=== PATIENT | male | born 1990 | race Caucasian/White ===

== ENCOUNTER 2023-07-06 17:05 | Emergency (ER) | payer OTHER, SELFPAY ==
[2023-07-06 17:11] VITALS: BP 136/89; PULSE 83; RESP 16; TEMP 36.5; O2SAT 99; BMI 31.0
[2023-07-06] MEDS: PROPARACAINE 0.5% OPHTH SOL 1 DROPS EYE-RIGHT (17:32)
[2023-07-06] MEDS: FLUORESCEIN 1 MG STRIP EYE-RIGHT (17:33)
--- NOTE | 2023-07-06 17:33 | PC.NURSE ---
medications administered by provider. patient states he was at walk in clinic at [facility], they did eye exam and found nothing but prescribed medications. 1 hr after administering medications at home, eye felt much worse. pt came to get second opinion here. describes pain as achy and burning.
[2023-07-06] MEDS: OXYCODONE IR 5 MG TABLET PO (17:56)
[2023-07-06] MEDS: KETOROLAC 30 MG/ML VIAL IM (17:57)
--- NOTE | 2023-07-06 18:06 | ED.EYEPROB ---
HPI - Eye Problem <Delia Flores PA-C - Last Filed: 07/06/23 18:13> General Chief complaint: Eye Problems Stated complaint: Foreign object in rt eye... Time Seen by Provider: 07/06/23 17:24 Source: patient Mode of arrival: Ambulatory History of Present Illness HPI Narrative: Patient is a 33-year-old male with no significant past medical history who presents with right eye pain and foreign body sensation. 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 He initially rinsed his eye with tap water and went to the walk-in clinic on [facility]. They evaluated him and determined he had no foreign body in his eye and prescribed him erythromycin ointment to use at home. He filled this medication and applied it at home this afternoon after which time he had severe eye pain that was unbearable. He presents to the emergency room with his for evaluation of the severe eye pain. He is concerned that there is still a foreign body in his eye. He reports his vision is intact but somewhat blurry, it is difficult and painful to open the eye due to photophobia. He has no headache. He has taken no medications today. Related Data Previous Rx's Medication Instructions Recorded oxycodone 5 mg tablet 5 mg PO Q6H PRN pain #7 tabs 07/06/23 Review of Systems <Delia Flores PA-C - Last Filed: 07/06/23 18:13> Review of Systems ROS Unobtainable: All systems reviewed & are unremarkable except as noted in HPI and below Patient History <Delia Flores PA-C - Last Filed: 07/06/23 18:13> Social History Smoking Status: Never smoker Smoking Status: Never smoker alcohol intake frequency: 0-2 drinks per day Alcohol type: beer Substance Use Type: does not use Exam <Delia Flores PA-C - Last Filed: 07/06/23 18:13> Narrative Exam Narrative: GENERAL: 33 year old patient appears stated age. Well-developed patient, in mild distress. NEURO: AOx3. HEAD: Atraumatic. Normocephalic. EYES: Pupils equal round and reactive. Extraocular motions intact. Significant injection of the right eye. No visible foreign body or deformity. ENT: Nose without bleeding or purulent drainage. Airway patent. RESPIRATORY: No increased work of breathing. SKIN: No rash or erythema of visible areas Initial Vital Signs Initial Vital Signs: Vital Signs Temperature 97.7 F 07/06/23 17:11 Pulse Rate 83 07/06/23 17:11 Respiratory Rate 16 07/06/23 17:11 Blood Pressure 136/89 07/06/23 17:11 Pulse Oximetry 99 07/06/23 17:11 Oxygen Delivery Method Room Air 07/06/23 17:11 <Leta Blanton MD - Last Filed: 07/06/23 18:35> Initial Vital Signs Initial Vital Signs: Vital Signs Temperature 97.7 F 07/06/23 17:11 Pulse Rate 83 07/06/23 17:11 Respiratory Rate 16 07/06/23 17:11 Blood Pressure 136/89 07/06/23 17:11 Pulse Oximetry 99 07/06/23 17:11 Oxygen Delivery Method Room Air 07/06/23 17:11 Procedures <Delia Flores PA-C - Last Filed: 07/06/23 18:13> Foreign Body EYE Time Out performed: Yes Location: eye (R) Topical anesthetic used: proparacaine Technique: irrigation Procedure performed under: direct visualization with magnification Post-procedure medication: ophthalmic antibiotic Patient tolerated procedure: well Complications: other (amin lamp exam with fluorescein stain shows significant corneal abrasion, no foreign body identified. No FB under lid.) Course <Delia Flores PA-C - Last Filed: 07/06/23 18:13> Orders Ordered: Discontinued Medications Fluorescein Sodium (Fluorescein 1 Mg Strip) 1 mg EYE-RIGHT NOW ONE Stop: 07/06/23 17:30 Last Admin: 07/06/23 17:33 Dose: 1 mg Documented By: NL Ketorolac Tromethamine (Ketorolac 30 Mg/Ml Vial) 30 mg IM NOW ONE Stop: 07/06/23 17:52 Last Admin: 07/06/23 17:57 Dose: 30 mg Documented By: NL Oxycodone HCl (Oxycodone Ir 5 Mg Tablet) 5 mg PO NOW ONE Stop: 07/06/23 17:52 Last Admin: 07/06/23 17:56 Dose: 5 mg Documented By: NL Proparacaine HCl (Proparacaine 0.5% Ophth Mckenzie) 1 drops EYE-RIGHT NOW ONE Stop: 07/06/23 17:29 Last Admin: 07/06/23 17:32 Dose: 1 drop Documented By: JOSIAH Vital Signs Vital signs: Vital Signs - 8 hr 07/06/23 17:11 Temperature 97.7 F Pulse Rate 83 Respiratory Rate 16 Blood Pressure 136/89 Pulse Oximetry 99 Oxygen Delivery Method Room Air <Leta Blanton MD - Last Filed: 07/06/23 18:35> Orders Ordered: Discontinued Medications Fluorescein Sodium (Fluorescein 1 Mg Strip) 1 mg EYE-RIGHT NOW ONE Stop: 07/06/23 17:30 Last Admin: 07/06/23 17:33 Dose: 1 mg Documented By: JOSIAH Ketorolac Tromethamine (Ketorolac 30 Mg/Ml Vial) 30 mg IM NOW ONE Stop: 07/06/23 17:52 Last Admin: 07/06/23 17:57 Dose: 30 mg Documented By: JOSIAH Oxycodone HCl (Oxycodone Ir 5 Mg Tablet) 5 mg PO NOW ONE Stop: 07/06/23 17:52 Last Admin: 07/06/23 17:56 Dose: 5 mg Documented By: JOSIAH Proparacaine HCl (Proparacaine 0.5% Ophth Mckenzie) 1 drops EYE-RIGHT NOW ONE Stop: 07/06/23 17:29 Last Admin: 07/06/23 17:32 Dose: 1 drop Documented By: JOSIAH Vital Signs Vital signs: Vital Signs - 8 hr 07/06/23 17:11 Temperature 97.7 F Pulse Rate 83 Respiratory Rate 16 Blood Pressure 136/89 Pulse Oximetry 99 Oxygen Delivery Method Room Air MDM - Eye Problem <Delia Flores PA-C - Last Filed: 07/06/23 18:13> MDM Narrative Medical decision making narrative: Multiple etiologies for patient's symptoms considered including, but not limited to: Foreign body in the eye, corneal abrasion No evidence of foreign body with fluorescein stain and Wood lamp exam but significant corneal abrasion noted. Suspect patient's pain with erythromycin ointment application was due to the size of the corneal abrasion. Provided reassurance. Patient irrigated his eye with 500 mL of normal saline prior to discharge. Patient given pain medication of Toradol oxycodone prior to discharge as well as a script for oxycodone at home. Advised to seek follow up care with an core feeder tomorrow if symptoms are not improving. Patient has erythromycin ointment prescribed from the [facility] that he can use to treat the eye. Patient's symptoms improved over duration of stay with above-stated therapies. Findings and discharge diagnosis discussed with patient/family followed by verbalization of understanding Return precautions discussed with patient/family whom verbalize understanding of diagnosis and plan Discharge Plan Departure Patient Disposition: Home Clinical Impression: Corneal abrasion Qualifiers: Encounter type: initial encounter Laterality: right Qualified Code(s): S05.01XA - Injury of conjunctiva and corneal abrasion without foreign body, right eye, initial encounter Instructions: DI for Corneal Abrasion Activity Restrictions/Additional Instructions: *You have been diagnosed with right eye corneal abrasion. I do not see a foreign body on exam today. You were given pain medicine including Toradol (an NSAID) plus oxycodone prior to discharge. I have also prescribed a short course of oxycodone for home as eye pain can be very severe. Luckily the cornea does heal quickly and I would expect that you feel much better after 24 hours. Continue to use the erythromycin ointment as prescribed by the other clinic. If you are feeling worse tomorrow, I would call [facility]. I have put the information below. They are in ophthalmology clinic here in [place]. I would describe the situation and asked for an urgent appointment. *What to do: *Please continue to take your regular medications as directed. [X] New medication prescriptions sent to your pharmacy: [facility] [ ] New medication written as a paper prescription [ ] No new medications given *Please follow up with your primary care provider in 2-3 days, call for an appointment. Let them know you were seen in the Emergency Department and that we ask that you be seen in follow up. We will electronically transmit a record of today's note if your PCP is in our system *If you do not have a primary care provider please contact the [facility] Resource line at [phone]. They will ask some questions about your medical history and help get you set up with a doctor in the community. *Return to Emergency Department if you should have any new, worsening or concerning symptoms, such as [fever greater than 101 F, shaking chills, worsening pain, persistent vomiting or other concerning symptoms]. You have been prescribed a short course of narcotic medications. These are potentially dangerous and addictive medications that should be used carefully. While on these medications you cannot drive or operate heavy machinery. Do not drink alcohol or use other sedative medications while you are taking this medication. Additionally, you cannot sign legal documents or perform any duties such as this. 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 Please understand that we cannot provide further refills of narcotics or controlled substances through the ED and your pain management will need to be through your Primary Care Provider. Prescriptions: New oxycodone 5 mg tablet 5 mg PO Q6H PRN (Reason: pain) Qty: 7 0RF Referrals: [facility] [Provider Group] Stand Alone Forms: Patient Portal/API ED Sign-out <Leta Blanton MD - Last Filed: 07/06/23 18:35> Cosign ED Attending Crystal Attestation: I was immediately available in the department for consultation throughout this patient's visit. Leta Blanton MD
== END 2023-07-06 18:05 | disposition home or self-care (01) ==
PROVIDERS: Emergency Provider Physician Assistant
DX: S05.01XA Injury of conjunctiva and corneal abrasion without foreign body, right eye, initial encounter (principal)
CPT/HCPCS: 65220; 96372; 99283; J1885